=== PATIENT | female | born 1985 | race Caucasian/White ===

== ENCOUNTER 2016-07-30 12:25 | Emergency (ER) | payer MEDICAID, OTHER ==
[2016-07-30 13:56] LABS: BASO % 0.5 % (0.0-2.0); EOS % 0.5 % (0.0-4.0); HEMATOCRIT 36.9 % (34.0-47.0); LYMPH % 29.3 % (20.0-40.0); MEAN CELL VOLUME 93.3 fL (81.0-99.0); MEAN CORPUSCULAR HEMOGLOBIN 31.8 pg (27.0-31.0); MEAN CORPUSCULAR HGB CONC 34.1 g/dL (33.0-37.0); MEAN PLATELET VOLUME 9.3 fL (7.2-11.7); MONO # 0.7 K/uL (0.0-0.8); MONO % 9.6 % (0.0-10.0); NRBC % 0.1 % (0.0-2.0); RED CELL DISTRIBUTION WIDTH 12.6 % (11.5-14.5)
--- NOTE | 2016-07-30 14:15 | C.PDOC ---
History Of Present Illness 30 yo female , LNMP 05/26/16, come in for evaluation of intermittent sharp lower abdominal pain for past few weeks. Otherwise, pt denies fever, chills, known trauma or injury, sore throat, cough, CP, SOB, dyspnea, N/V/D, vaginal irritation, discharge, denies vaginal bleeding. Pt denies current care. Ambulate to Ed for evaluation, not in any apparent distress. Time Seen by Provider: 07/30/16 13:10 Chief Complaint (Nursing): Abdominal Pain History Per: Patient Onset/Duration Of Symptoms: Intermittent Episodes Current Symptoms Are (Timing): Still Present Past Medical History Reviewed: Historical Data, Nursing Documentation, Vital Signs Vital Signs: Last Vital Signs Temp 98.4 F 07/30/16 15:05 Pulse 74 07/30/16 15:05 Resp 16 07/30/16 15:05 BP 111/79 07/30/16 15:05 Pulse Ox 100 07/30/16 15:05 - Medical History PMH: No Chronic Diseases Surgical History: No Surg Hx Family History: States: No Known Family Hx - Social History Hx Tobacco Use: No Hx Alcohol Use: No Hx Substance Use: No - Immunization History Hx Tetanus Toxoid Vaccination: No Hx Influenza Vaccination: No Hx Pneumococcal Vaccination: No Review Of Systems Except As Marked, All Systems Reviewed And Found Negative. Constitutional: Negative for: Fever, Chills ENT: Negative for: Throat Pain Cardiovascular: Negative for: Chest Pain Respiratory: Negative for: Cough, Shortness of Breath Gastrointestinal: Positive for: Abdominal Pain. Negative for: Nausea, Vomiting , Diarrhea, Hematochezia Genitourinary: Negative for: Dysuria, Frequency, Incontinence, Hematuria, Vaginal Discharge, Vaginal Bleeding Musculoskeletal: Negative for: Back Pain Neurological: Negative for: Weakness, Numbness, Altered Mental Status, Headache , Dizziness Physical Exam - Physical Exam Appears: Well, Non-toxic, No Acute Distress Skin: Normal Color, Warm, Dry, No Rash Eye(s): bilateral: PERRL Nose: Normal Throat: Normal, No Erythema, No Exudate, No Drooling Neck: Normal, Normal ROM, Supple Cardiovascular: Rhythm Regular Respiratory: Normal Breath Sounds, No Stridor, No Wheezing Gastrointestinal/Abdominal: Soft, Tenderness (mild suprapubic tenderness.), No Distention, No Guarding Back: No CVA Tenderness Extremity: No Pedal Edema Neurological/Psych: Oriented x3, Normal Speech ED Course And Treatment - Laboratory Results Result Diagrams: 07/30/16 13:51 07/30/16 13:51 Lab Interpretation: Normal Urine POC: Positive O2 Sat by Pulse Oximetry: 99 Pulse Ox Interpretation: Normal - CT Scan/US US Other Rad Studies (CT/US): Radiology Report Reviewed CT/US Interpretation: Indication: Pain, . Comparison: None available. Technique: Real-time transabdominal pelvic ultrasound was performed. In addition a transvaginal pelvic ultrasound was necessary to better depict pelvic anatomy. Findings: The uterus measures approximately 8.1 x 5.9 x 5.8 cm. Anteverted. Cervix length measures approximately 3.1 cm. There is a single intrauterine fetus present. 3 mm yolk sac. The gestational sac measures 3.2 cm and is compatible with a gestational age of 8 weeks 2 days. The crown-rump length measures 1.7 cm and is compatible with a gestational age of 8 weeks 1 day. There is heart motion which measured 165.9 BPM. The right ovary measures 3.1 x 2.4 x 2.5 cm. The left ovary measures 2.5 x 2.5 x 2.7 cm. Blood flow was demonstrated to both ovaries. Impression: Live single intrauterine with estimated gestational age 8 weeks 2 days. heart rate 165.9 bpm. Advise an anomaly screen at 16-18 weeks gestational age Progress Note: On re-eavluation, pt is afebrile, hemodynamicaly stable. Non- toxic. Tolerate Po well in ED. ENT: no acute finidngs. Lungs: CTA B/L, BS equal B/L. ABd: benign, (-) guarding, (-) rebound, (-) localized tenderness. back: (-) CVA tenderness. Diagnostics review and appears normal. US review and c/w (+) 8w2d normal single IUP. Beta quant results c/w 8weeks . Pt deies vaginal bleeding. UA results review and c/w UTI. Pt advised on course of ds. ref. to F/U with OB in 2-3 days for re-eavl. return if any new changes. Disposition Counseled Patient/Family Regarding: Studies Performed, Diagnosis, Need For Followup, Rx Given - [facility]position [facility] Disposition: HOME/ ROUTINE Disposition Time: 14:30 Condition: STABLE Additional Instructions: Encourage fluids take medication as prescribed Follow up with OB in 2-3 days for re-evaluation. Return to ED if any worsening or new changes. Prescriptions: Nitrofurantoin Macrocrystals [Macrobid] 1 cap PO BID #14 cap Multivit/Folic Acid/I [ Plus] 1 tab PO DAILY #30 tab Instructions: Urinary Tract Infection in (ED), at 7 to 10 Weeks (ED) - Clinical Impression Clinical Impression: UTI (urinary tract infection),
[2016-07-30 14:17] LABS: RBC URINE 1 /hpf (0-3); URINE BACTERIA MOD (<OCC); URINE BILIRUBIN NEGATIVE (NEGATIVE); URINE BLOOD NEGATIVE (NEGATIVE); URINE GLUCOSE (UA) NORMAL (Normal); URINE KETONE NEGATIVE (NEGATIVE); URINE LEUKOCYTE ESTERASE 1+ Leu/uL (Negative); URINE PROTEIN 1+ mg/dL (NEGATIVE); WBC URINE 25 /hpf (0-5)
[2016-07-30 14:18] LABS: URINE COLOR YELLOW (YELLOW)
[2016-07-30 14:39] LABS: CHLORIDE 101 mmol/L (98-107)
[2016-07-30 14:40] LABS: SODIUM 137 mmol/L (132-148)
[2016-07-30 14:42] LABS: GFR AFRICAN-AMERICAN > 60
[2016-07-30 14:43] LABS: BLOOD UREA NITROGEN 8 mg/dL (7-17); CALCIUM 9.5 mg/dl (8.6-10.4); CARBON DIOXIDE 25 mmol/L (22-30); GLUCOSE,RANDOM 67 mg/dL (65-105)
[2016-07-30 15:08] VITALS: BP 111/79; PULSE 74; RESP 16; TEMP 98.4
--- NOTE | 2016-07-30 15:13 | US ---
Indication: Pain, Comparison: None available Technique: Real-time transabdominal pelvic ultrasound was performed. In addition a transvaginal pelvic ultrasound was necessary to better depict pelvic anatomy Findings: The uterus measures approximately 8.1 x 5.9 x 5.8 cm. Anteverted. Cervix length measures approximately 3.1 cm. There is a single intrauterine fetus present. 3 mm yolk sac. The gestational sac measures 3.2 cm and is compatible with a gestational age of 8 weeks 2 days. The crown-rump length measures 1.7 cm and is compatible with a gestational age of 8 weeks 1 day. There is heart motion which measured 165.9 BPM. The right ovary measures 3.1 x 2.4 x 2.5 cm. The left ovary measures 2.5 x 2.5 x 2.7 cm. Blood flow was demonstrated to both ovaries. Impression: Live single intrauterine with estimated gestational age 8 weeks 2 days. heart rate 165.9 bpm. Advise an anomaly screen at 16-18 weeks gestational age
[2016-07-30 15:58] VITALS: O2SAT 99
== END 2016-07-30 16:13 | disposition home or self-care (01) ==
LOC: C.ER 12:25
DX: O23.41 Unspecified infection of urinary tract in pregnancy, first trimester (principal); Z3A.08 8 weeks gestation of pregnancy

== ENCOUNTER 2016-09-16 11:28 | Emergency (ER) | payer MEDICAID, OTHER ==
[2016-09-16 12:15] LABS: BASO % 0.4 % (0.0-2.0); EOS # 0.1 K/uL (0.0-0.7); EOS % 0.8 % (0.0-4.0); HEMATOCRIT 35.9 % (34.0-47.0); LYMPH # 1.6 K/uL (1.0-4.3); LYMPH % 22.5 % (20.0-40.0); MEAN CELL VOLUME 93.8 fL (81.0-99.0); MEAN CORPUSCULAR HEMOGLOBIN 31.6 pg (27.0-31.0); MEAN CORPUSCULAR HGB CONC 33.7 g/dL (33.0-37.0); MEAN PLATELET VOLUME 8.6 fL (7.2-11.7); MONO # 0.6 K/uL (0.0-0.8); MONO % 8.7 % (0.0-10.0); NRBC % 0.1 % (0.0-2.0); RED CELL DISTRIBUTION WIDTH 12.3 % (11.5-14.5); WHITE BLOOD COUNT 6.9 K/uL (4.8-10.8)
[2016-09-16 12:20] LABS: RBC URINE 10 /hpf (0-3); URINE BACTERIA OCC (<OCC); URINE BILIRUBIN NEGATIVE (NEGATIVE); URINE BLOOD NEGATIVE (NEGATIVE); URINE COLOR Yellow (YELLOW); URINE GLUCOSE (UA) NORMAL (Normal); URINE KETONE NEGATIVE (NEGATIVE); URINE LEUKOCYTE ESTERASE 2+ Leu/uL (Negative); URINE PROTEIN NEGATIVE (NEGATIVE); WBC URINE 24 /hpf (0-5)
[2016-09-16 12:25] LABS: CHLORIDE 100 mmol/L (98-107)
[2016-09-16 12:26] LABS: POTASSIUM 3.9 mmol/L (3.6-5.2); SODIUM 134 mmol/L (132-148)
[2016-09-16 12:28] LABS: ALB/GLOB RATIO 1.2 (1.0-2.1); ALKALINE PHOSPHATASE 64 U/L (38-126); AST/SGOT 24 U/L (14-36); BILIRUBIN,TOTAL 0.6 mg/dL (0.2-1.3); CARBON DIOXIDE 24 mmol/L (22-30); GFR AFRICAN-AMERICAN > 60; TOTAL PROTEIN 7.2 g/dL (6.3-8.3)
[2016-09-16 12:29] LABS: ALT/SGPT 24 U/L (9-52); BLOOD UREA NITROGEN 7 mg/dL (7-17); CALCIUM 9.1 mg/dl (8.6-10.4); GLUCOSE,RANDOM 91 mg/dL (65-105)
--- NOTE | 2016-09-16 13:02 | US ---
Pelvic ultrasound History: . Pain. Comparison: None available. Technique: Real-time sonography was performed through the pelvis. Findings: LMP of 05/26/2016. Please note this was a limited study for viability purposes only. Dedicated anatomic survey at an interval date is recommended. Heterogeneous uterus. Cervix 3.1 centimeters. Posterior low-lying placenta approximately 1.7 centimeters from the cervical os. Breech presentation. heart rate of 157 beats per minute. Mean ultrasound age of approximately 15 weeks and 3 days. Biparietal diameter measures 3.1 centimeters, head circumference measures 11.2 centimeters, abdominal circumference measures 9.2 centimeters, and femur length measures 1.7 centimeters. No free fluid in the pelvic cul-de-sac. Impression: Limited study for viability purposes only. Dedicated anatomic survey at an interval date is recommended for further evaluation. Intrauterine with intrauterine gestation corresponding to a mean ultrasound age of approximately 15 weeks and 3 days with heart rate of 157 beats per minute. Breech presentation of the fetus. Posterior low-lying placenta approximately 1.7 centimeters from the cervical os. Interval followup ultrasound and or interval followup anatomic survey is recommended.
--- NOTE | 2016-09-16 13:07 | C.PDOC ---
History Of Present Illness 31 y/o female G1PO 3.5 months c/o left sided pelvic pain that started today. Denies vaginal bleeding or vaginal discharge. Notes she saw OB-SOUND ENGINEERING TECHNICIAN 3 weeks ago, and was prescribed ultrasound, but was unable to do it. Denies fever , back pain, dysuria, or urinary frequency. Normal BM Time Seen by Provider: 09/16/16 11:42 Chief Complaint (Nursing): Abdominal Pain History Per: Patient History/Exam Limitations: no limitations Onset/Duration Of Symptoms: Days Current Symptoms Are (Timing): Still Present Location Of Pain/Discomfort: Suprapubic Radiation Of Pain To:: None Quality Of Discomfort: Cramping Associated Symptoms: denies: Fever, Chills, Nausea, Vomiting, Diarrhea, Urinary Symptoms Recent travel outside of the [place]: No Abnormal Vaginal Bleeding: No Past Medical History Reviewed: Historical Data, Nursing Documentation, Vital Signs Vital Signs: Last Vital Signs Temp 98.2 F 09/16/16 16:08 Pulse 82 09/16/16 16:08 Resp 20 09/16/16 16:08 BP 106/68 09/16/16 16:08 Pulse Ox 100 09/16/16 16:08 - Medical History PMH: No Chronic Diseases Family History: States: Unknown Family Hx - Social History Hx Tobacco Use: No Hx Alcohol Use: No Hx Substance Use: No - Immunization History Hx Tetanus Toxoid Vaccination: No Hx Influenza Vaccination: No Hx Pneumococcal Vaccination: No Review Of Systems Except As Marked, All Systems Reviewed And Found Negative. Constitutional: Negative for: Fever, Chills Cardiovascular: Negative for: Chest Pain Respiratory: Negative for: Shortness of Breath Gastrointestinal: Positive for: Abdominal Pain. Negative for: Nausea, Vomiting , Diarrhea Genitourinary: Positive for: Pelvic Pain. Negative for: Dysuria, Frequency, Hematuria, Vaginal Discharge, Vaginal Bleeding Skin: Negative for: Rash Physical Exam - Physical Exam Appears: Non-toxic, No Acute Distress Skin: Normal Color, Warm, Dry Head: Atraumatic, Normacephalic Eye(s): bilateral: Normal Inspection, EOMI Nose: Normal Oral Mucosa: Moist Neck: Supple Chest: Symmetrical Cardiovascular: Rhythm Regular Respiratory: Normal Breath Sounds, No Rales, No Rhonchi, No Wheezing Gastrointestinal/Abdominal: Soft, Tenderness (Left sided pelvic tenderness), No Distention, No Guarding, No Rebound Back: Normal Inspection Extremity: Normal ROM, Capillary Refill (< 2 sec.) Neurological/Psych: Oriented x3, Normal Speech, Normal Cognition ED Course And Treatment - Laboratory Results Result Diagrams: 09/16/16 12:12 09/16/16 12:12 O2 Sat by Pulse Oximetry: 97 (RA) Pulse Ox Interpretation: Normal - CT Scan/US OB ULTRASOUND Other Rad Studies (CT/US): Read By Radiologist, Radiology Report Reviewed CT/US Interpretation: Accession No. : [id number]. Patient Name / ID : DIOGENES PIPER / [id number]. Exam Date : 09/16/2016 12:20:23 ( Approved ). Study Comment : Sex / Age : F / 31Y. Creator : Fam Majano MD. Dictator : Fam Majnao MD. Lyric Writer : [employer] : Fam Majano MD. Approver2 : Report Date : 09/16/2016 13:00:11. My Comment : . Pelvic ultrasound. History: . Pain. Comparison: None available. Technique: Real-time sonography was performed through the pelvis. Findings: LMP of 05/26/2016. Please note this was a limited study for viability purposes only. Dedicated anatomic survey at an interval date is recommended. Heterogeneous uterus. Cervix 3.1 centimeters. Posterior low-lying placenta approximately 1.7 centimeters from the cervical os. Breech presentation. heart rate of 157 beats per minute. Mean ultrasound age of approximately 15 weeks and 3 days. Biparietal diameter measures 3.1 centimeters, head circumference measures 11.2 centimeters, abdominal circumference measures 9.2 centimeters, and femur length measures 1.7 centimeters. No free fluid in the pelvic cul-de- sac. Impression: Limited study for viability purposes only. Dedicated anatomic survey at an interval date is recommended for further evaluation. Intrauterine with intrauterine gestation corresponding to a mean ultrasound age of approximately 15 weeks and 3 days with heart rate of 157 beats per minute. Breech presentation of the fetus. Posterior low-lying placenta approximately 1.7 centimeters from the cervical os. Interval followup ultrasound and or interval followup anatomic survey is recommended. PELVIS ULTRASOUND Other Rad Studies (CT/US): Read By Radiologist, Radiology Report Reviewed CT/US Interpretation: Accession No. : [id number]. Patient Name / ID : DIOGENES PIPER / [id number]. Exam Date : 09/16/2016 13:33:41 ( Approved ). Study Comment : Sex / Age : F / 31Y. Creator : Fam Majano MD. Dictator : Fam Majano MD. Lyric Writer : [employer] : Fam Majano MD. Approver2 : Report Date : 09/16/2016 15:59:42. My Comment : . This report is currently processing and HAS NOT BEEN OFFICIALLY SIGNED BY THE PHYSICIAN - ESTIMATED TIME OF APPROVAL IS 09/16/2016 16:04. Pelvic ultrasound. History: Evaluate for ovarian torsion. Pelvic pain. Comparison: Ultrasound dated 2016. Technique: Limited real-time sonography was performed through the bilateral ovaries. Findings: Right ovary: Limited visualization. 3.0 x 1.2 x 3.1 centimeters. Normal flow. Left ovary: 3.5 x 2.6 x 2.7 centimeters. Normal flow. Impression: Limited sonographic evaluation of the ovaries appears grossly preserved. Progress Note: Labs, ultrasound ordered and reviewed. On re-evaluation, patient is resting comfortably, and is in no acute distress. Pain improved. Pt ate in ER. Tolerating PO. Patient was instructed to follow up with OB in 1-2 days for further evaluation. Disposition - Disposition Disposition: HOME/ ROUTINE Disposition Time: 13:22 Condition: STABLE Additional Instructions: Beta HCG today is 40,000. Follow up with your primary medical doctor or clinic in 2-5 days for further evaluation. Take medications as prescribed. Return to the emergency department at any time if symptoms persist or worsen. Prescriptions: Nitrofurantoin Macrocrystals [Macrobid] 1 cap PO BID #14 cap Instructions: (ED) - Clinical Impression Clinical Impression: , UTI (urinary tract infection) - PA / CR[employer] RANCH HAND / Resident Statement MD/DO has reviewed & agrees with the documentation as recorded. - Scribe Statement The provider has reviewed the documentation as recorded by the Scribe All medical record entries made by the Scribe were at my direction and personally dictated by me. I have reviewed the chart and agree that the record accurately reflects my personal performance of the history, physical exam, medical decision making, and the department course for this patient. I have also personally directed, reviewed, and agree with the discharge instructions and disposition.
--- NOTE | 2016-09-16 16:02 | US ---
Pelvic ultrasound History: Evaluate for ovarian torsion. Pelvic pain. Comparison: Ultrasound dated 09/16/2016 Technique: Limited real-time sonography was performed through the bilateral ovaries. Findings: Right ovary: Limited visualization. 3.0 x 1.2 x 3.1 centimeters. Normal flow. Left ovary: 3.5 x 2.6 x 2.7 centimeters. Normal flow. Impression: Limited sonographic evaluation of the ovaries appears grossly preserved.
[2016-09-16 16:09] VITALS: BP 106/68; PULSE 82; RESP 20; TEMP 98.2
[2016-09-16 18:22] VITALS: O2SAT 97
== END 2016-09-16 16:08 | disposition home or self-care (01) ==
LOC: C.ER 11:28
DX: O23.42 Unspecified infection of urinary tract in pregnancy, second trimester (principal); Z3A.15 15 weeks gestation of pregnancy